=== PATIENT | male | born 1995 | race Caucasian/White ===

== ENCOUNTER 2016-12-09 03:05 | Emergency (ER) | payer SELFPAY ==
--- NOTE | 2016-12-09 03:22 | EDM.PDOC ---
ED HPI GENERAL MEDICAL PROBLEM - General Chief Complaint: Lower Extremity Injury/Pain Stated Complaint: RIGHT KNEE PAIN Time Seen by Provider: 12/09/16 03:20 - History of Present Illness INITIAL COMMENTS - FREE TEXT/NARRATIVE: HISTORY AND PHYSICAL: History of present illness: Patient's a 21-year-old male presents with a concern of acute right knee pain he states his right knee intermittently locks is usually is relieved with extension but patient states this is not been resolved since yesterday. He denies any trauma or other concern Review of systems: As per history of present illness and below otherwise all systems reviewed and negative. Past medical history: As per history of present illness and as reviewed below otherwise noncontributory. Surgical history: As per history of present illness and as reviewed below otherwise noncontributory. Social history: No reported history of drug or alcohol abuse. Family history: As per history of present illness and as reviewed below otherwise noncontributory. Physical exam: HEENT: Atraumatic, normocephalic, pupils reactive, negative for conjunctival pallor or scleral icterus, mucous membranes moist, throat clear, neck supple, nontender, trachea midline. Lungs: Clear to auscultation, breath sounds equal bilaterally, chest nontender. Heart: S1S2, regular, negative for clicks, rubs, or JVD. Abdomen: Soft, nondistended, nontender. Negative for masses or hepatosplenomegaly. Negative for costovertebral tenderness. Pelvis: Stable nontender. Genitourinary: Deferred. Rectal: Deferred. Extremities: Atraumatic, negative for cords or calf pain. Neurovascular unremarkable. Neuro: Awake, alert, oriented. Cranial nerves II through XII unremarkable. Cerebellum unremarkable. Motor and sensory unremarkable throughout. Exam nonfocal. Diagnostics: X-ray right knee Therapeutics: Crutches Impression: #1 right knee pain Definitive disposition and diagnosis as appropriate pending reevaluation and review of above. Right Knee Pain Score (Numeric/FACES): 4 Review of Systems - Review of Systems Review Of Systems: ROS reveals no pertinent complaints other than HPI. ED EXAM, GENERAL - Physical Exam Exam: See Below (See dictation) Course - Vital Signs Last Recorded V/S: Last Vital Signs Temp 36.3 C 12/09/16 03:17 Pulse 81 12/09/16 03:17 Resp 20 12/09/16 03:17 BP 132/94 H 12/09/16 03:17 Pulse Ox 98 12/09/16 03:17 - Orders/Labs/Meds Orders: Active Orders 24 hr Category Date Time Status Knee 3V Rt [CR] Stat Exams 12/09/16 03:08 Ordered Departure - Departure Time of Disposition: Disposition: Home, Self-Care 01 Condition: Good Clinical Impression: Knee pain - Discharge Information Referrals: PCP,None [Primary Care Provider] - Additional Instructions: The following information is given to patients seen in the emergency department who are being discharged to home. This information is to outline your options for follow-up care. We provide all patients seen in our emergency department with a follow-up referral. The need for follow-up, as well as the timing and circumstances, are variable depending upon the specifics of your emergency department visit. If you don't have a primary care physician on staff, we will provide you with a referral. We always advise you to contact your personal physician following an emergency department visit to inform them of the circumstance of the visit and for follow-up with them and/or the need for any referrals to a consulting specialist. The emergency department will also refer you to a specialist when appropriate. This referral assures that you have the opportunity for followup care with a specialist. All of these measure are taken in an effort to provide you with optimal care, which includes your followup. Under all circumstances we always encourage you to contact your private physician who remains a resource for coordinating your care. When calling for followup care, please make the office aware that this follow-up is from your recent emergency room visit. If for any reason you are refused follow-up, please contact the [facility] emergency department at and asked to speak to the emergency department charge nurse. [facility] Professional Building [address] [place] [address], [address] [place] [address] Knee immobilizer crutches as directed Motrin/Tylenol as directed cultures schedule appointment with orthopedic surgery above return as needed as discussed - My Orders Last 24 Hours: My Active Orders 12/09/16 03:08 Knee 3V Rt [CR] Stat - Assessment/Plan Last 24 Hours: My Active Orders 12/09/16 03:08 Knee 3V Rt [CR] Stat
--- NOTE | 2016-12-09 20:27 | CR ---
EXAM DATE: 12/09/16 PATIENT'S AGE: 21 Patient: ALICIA MINA Facility: [place], [place] Site . Site : 1995 Study: XRay Knee [id number]/22/2017 4:00:00 AM Ordering Physician: Doctor Roblero Final Report: INDICATION: PAIN AFTER STRETCHING, H/O TORN MENISCUS TECHNIQUE: Right knee 3 views. COMPARISON: None. FINDINGS: Bones: Alignment is normal. No fractures or bone lesions. Joint spaces: Unremarkable. Soft tissues: Unremarkable. IMPRESSION: Unremarkable right knee. Dictated by: Hoang Soliman MD @ 12/09/2016 04:13:42 (Electronic Signature) Report Signed by Proxy. JAZZMINE
== END 2016-12-09 04:35 | disposition home or self-care (01) ==
LOC: MW.ED 03:05
DX: M25.561 Pain in right knee (principal)
CPT/HCPCS: 73562-26-RT; 73562-RT; 99282; 99283